=== PATIENT | male | born 2000 | race Caucasian/White ===

== ENCOUNTER 2024-12-03 15:32 | Observation (INO) ==
--- NOTE | 2024-12-03 15:49 | Emergency Department Note ---
HPI - Abdominal Pain General Chief Complaint: Abdominal Pain Stated Complaint: N/V/D, STOMACH DAVID Source: patient Mode of arrival: walk-in Limitations: no limitations History of Present Illness HPI narrative: This is a 24 year old male patient that presents to the ER with c/o diffuse abdominal pain with N/V/D today. patient states the pain is radiating into his chest. Patient denies any SOB, back pain, fever or chills. Patient states he smokes marijuana occassionally MD elicited complaint: abdominal pain Pertinent past history: none Onset (ago): hour(s) (4) Pain Consistency: constant Location: diffuse Severity: moderate Quality: cramping Radiation: chest Migration to: no migration Exacerbating factors: nothing Relieving factors: nothing Associated symptoms: nausea, vomiting and diarrhea Related Data Home Medications Medication Instructions Recorded Confirmed No Known Home Medication 12/03/24 12/03/24 Allergies Allergy/AdvReac Type Severity Reaction Status Date / Time No Known Drug Allergies Allergy Verified 12/03/24 16:13 Review of Systems Status of ROS 10 or more systems reviewed and unremark able except as noted in history and below Constitutional Denies: fever, chills, change in weight, fatigue, malaise or night sweats Eyes Denies: change in vision, blurry vision, blind spots or light sensitivity Ears, nose, mouth, and throat Denies: throat pain, neck pain, throat swelling, difficulty swallowing, hoarseness or mouth pain Cardiovascular Reports: chest pain; Denies: palpitations, edema, swelling of feet/ankles, lightheadedness or shortness of breath with exertion Respiratory Denies: shortness of breath, cough, wheezing, stridor, pain on inspiration, change in phlegm color or coughing up blood Gastrointestinal Reports: abdominal pain, nausea, vomiting and diarrhea; Denies: coffee grounds in vomit or heartburn Genitourinary Denies: painful urination, urinary frequency, urinary urgency, blood in urine, genital pain or genital lesion Musculoskeletal Denies: back pain, neck pain, extremity pain, extremity swelling, joint pain, limited range of motion or joint swelling Integumentary/Breast Denies: rash, itching, redness, skin pain, skin tenderness, skin swelling or sores Neurological Denies: headache, numbness in extremities, weakness in extremities, lack of coordination, dizziness or vertigo Psychiatric Denies: anxiety, mood swings, panic attacks, change in sleep pattern, hopelessness or loss of interest Endocrine Denies: excessive urination, excessive thirst, fatigue, cold intolerance or excessive sweating Hematologic/Lymphatic Denies: easy bruising, easy bleeding or enlarged lymph nodes Allergic/Immunologic Denies: hives, throat swelling, tongue swelling, facial swelling or wheezing PFSH COUNT INCLUDES [facility] Medical History (Updated 12/03/24 @ 16:14 by Dawna Rodriguez RN) Patient denies medical problems Surgical History (Updated 12/03/24 @ 16:14 by Dawna Rodriguez RN) No history of previous surgery Social History Smoking status: never smoker Within the past year, how often did you have a drink containing alcohol: never Within the past year, how often did you have six or more drinks on one occasion: never Score interpretation: A score less than 4 is consistent with normal alcohol consumption. Non-prescribed substance use: cannabis (any form) Exam Constitutional: normal general appearance and no apparent distress Vital Signs - 24 hr 12/03/24 15:52 Temperature 97.5 F L Pulse Rate 92 H Respiratory Rate 18 Blood Pressure 106/67 Pulse Oximetry 100 HENMT: normocephalic, head/scalp atraumatic, hearing grossly normal bilaterally, external ears normal, nasal mucous membranes normal, external nose normal, oral mucous membranes normal and oropharynx normal Eyes: PERRL, EOMs intact bilaterally, conjunctivae normal and no scleral icterus Neck/C-Spine: visual inspection normal and trachea midline Lymph: no lymphadenopathy noted Chest: inspection of chest normal Respiratory: breath sounds equal bilaterally, normal respiratory effort, clear to auscultation bilaterally, no wheezes, no rales, no retractions and no use of accessory muscles Cardiovascular: normal heart rate noted, regular rhythm noted, no gallop, no rub, no murmur, no JVD, no clicks, peripheral pulses 2+ throughout and no additional abnormal heart sounds Gastrointestinal: abdomen normal to inspection, abdomen soft to palpation, nontender to palpation, nontender to percussion, nondistended, normoactive bowel sounds, no hepatosplenomegaly, no masses, no pulsatile mass, no ascites and no hernia Genitourinary: no CVA tenderness Back/Pelvis: spine normal to inspection Extremities: normal to inspection, normal to palpation, no tenderness, full ROM, no joint enlargement and no deformity Neurology: no movement abnormality noted, no focal motor deficit noted, no sensory deficits noted, speech normal, coordination normal, no fasciculations noted and GCS normal Psychiatry: mental status grossly normal, oriented x3, thought process normal, cooperative and affect normal Skin: skin color normal Course Course Hospital Course: 1710: VSS, no s/s of acute distress noted, will admit patient to the medical floor for further evaluation and treatment Vital Signs Vital signs: Vital Signs Temperature 97.5 F L 12/03/24 15:52 Pulse Rate 92 H 12/03/24 15:52 Respiratory Rate 18 12/03/24 15:52 Blood Pressure 106/67 12/03/24 15:52 Pulse Oximetry 100 12/03/24 15:52 Temperature 97.5 F L 12/03/24 15:52 Pulse Rate 92 H 12/03/24 15:52 Respiratory Rate 18 12/03/24 15:52 Blood Pressure 106/67 12/03/24 15:52 Pulse Oximetry 100 12/03/24 15:52 MDM - Abdominal Pain Differential Diagnosis Differential diagnosis: Likely abdominal pain Medical Records Attestation: I reviewed the patient's medical records. Lab Data Attestation: I reviewed the patient's lab results. Labs: Lab Results 12/03/24 12/03/24 Range/Units 16:00 16:19 WBC 23.1 H* (3.7-9.6) K/uL RBC 5.7 (4.40-5.80) M/uL Hgb 18.2 H (14.0-17.4) gm/dL Hct 53.5 H (41.3-50.1) % MCV 93.3 (81.9-96.5) fl MCH 31.8 (27.6-33.7) pg MCHC 34.1 (33.0-35.7) g/dl RDW 13.3 (11.0-14.8) % Plt Count 277 (142-355) K/uL MPV 8.9 (6.0-10.4) fl Gran % 84.5 H (49.1-73.1) % Lymph % (Auto) 6.8 L (17.6-39.05) % [place] % (Auto) 8.0 (4.5-10.7) % Eos % (Auto) 0.5 (0.0-4.0) % Baso % (Auto) 0.2 (0.0-1.3) Lymph # (Auto) 1.6 (0.8-2.9) [place] # (Auto) 1.8 H (0.2-0.8) Eos # (Auto) 0.1 (0.0-0.3) Baso # (Auto) 0.0 (0.0-0.1) Absolute Gran (auto) 19.5 H (2.0-6.2) Sodium 138 (136-145) mmol/L Potassium 3.5 L (3.6-5.2) mmol/L Chloride 99.0 (98-107) mmol/L Carbon Dioxide 28 (21-32) mmol/L Anion Gap 11.0 (4-14) mEq/L BUN 18 (7-18) mg/dL Creatinine 1.1 (0.6-1.3) mg/dL Estimated GFR 95.5 (>59.9) Glucose 92 (70-110) mg/dL Lactic Acid 1.4 (0.27-1.43) mmol/L Calcium 9.8 (8.5-10.1) mg/dL Total Bilirubin 1.10 H (0.0-1.0) mg/dL AST 20 (15-37) U/L ALT 27 L (30-65) U/L Alkaline Phosphatase 102 (50-136) U/L Troponin I High Sens <4.00 L (4.0-60.4) ng/L Total Protein 8.1 (6.4-8.2) g/dL Albumin 4.6 (3.4-5.0) g/dL Lipase 22.0 (16.0-77.0) U/L Influenza Type A Ag Negative (Negative) Influenza Type B Ag Negative (Negative) Imaging Data Imaging ordered: CT scan - abdomen Attestation: I have reviewed the pertinent imaging results. Discharge Plan Discharge Patient Disposition: Admitted As Observation Condition: Stable Chief Complaint: Abdominal Pain Clinical Impression: Colitis, Abdominal pain, Leukocytosis Prescriptions: No Action No Known Home Medication Print Language: Prydeinig Referrals: [facility] [Other] Time of Disposition: 17:12
[2024-12-03] MEDS: KETOROLAC 30 MG/ML INJ VIAL IVP ONE (15:56)
[2024-12-03] MEDS: 0.9 % SODIUM CHLORIDE 1000 ML 1,000 ML IV STA (15:56)
[2024-12-03] MEDS: ONDANSETRON HCL/PF 4 MG/2 ML VIAL INJ STA (15:56)
[2024-12-03 16:07] LABS: Basophils%(Percent) Auto 0.2 (0.0-1.3); Eosinophils#(Absolute)Auto 0.1 (0.0-0.3); Monocytes #(Absolute)- Auto 1.8 (0.2-0.8)
[2024-12-03 16:09] LABS: Eosinophils%(Percent) Auto 0.5 % (0.0-4.0); Granulocytes % - Auto 84.5 % (49.1-73.1); Granulocytes#(Absolute)- Auto 19.5 (2.0-6.2); Hematocrit 53.5 % (41.3-50.1); Mean Corpuscular Volume 93.3 fl (81.9-96.5); Platelet Count 277 K/uL (142-355)
[2024-12-03 16:14] LABS: Potassium 3.5 mmol/L (3.6-5.2)
[2024-12-03 16:18] LABS: White Blood Count 23.1 K/uL (3.7-9.6)
[2024-12-03] MEDS ORDERED: CIPROFLOXACIN 400 MG/200ML-D5W 400 MG/200 ML PIGGYBACK IV ONE (17:47)
[2024-12-03] MEDS: CIPROFLOXACIN 400 MG/200ML-D5W 400 MG/200 ML PIGGYBACK IV STA (17:48)
[2024-12-03] MEDS ORDERED: ACETAMINOPHEN 500 MG TABLET PO PRN (18:06)
[2024-12-03] MEDS ORDERED: DICYCLOMINE HCL 10 MG/ML AMPUL IM PRN (18:06)
[2024-12-03] MEDS: METRONIDAZOLE 500 MG/100ML-NS 500 MG/100 ML PIGGYBACK IV STA (18:10)
[2024-12-03] MEDS: 0.9 % SODIUM CHLORIDE 1000 ML 1,000 ML IV SCH (18:40)
[2024-12-03 18:48] LABS: Urine Appearance CLEAR (CLEAR); Urine Blood NEGATIVE (NEG - TRACE); Urine Color AMBER (STRAW/YELL.)
[2024-12-03 18:49] LABS: Urine Urobilinogen Normal (NORMAL)
[2024-12-03 18:54] LABS: Amphetamine Screen Urine POS. (NEGATIVE); Cannabinoid Screen Urine POS. (NEGATIVE); Cocaine Screen Urine NEG. (NEGATIVE); Methadone Screen Urine NEG. (NEGATIVE); Opiate Screen Urine NEG. (NEGATIVE)
[2024-12-03] MEDS: PROMETHAZINE HCL 25 MG TABLET PO ONE ×2 (20:33)
[2024-12-03] MEDS: ONDANSETRON HCL/PF 4 MG/2 ML VIAL INJ PRN (20:35)
[2024-12-03] MEDS: MORPHINE SULFATE 4 MG/ML CARTRIDGE IVP PRN (20:36)
[2024-12-04] MEDS: METRONIDAZOLE 500 MG/100ML-NS 500 MG/100 ML PIGGYBACK IV SCH (02:28)
[2024-12-04] MEDS: CIPROFLOXACIN 400 MG/200ML-D5W 400 MG/200 ML PIGGYBACK IV SCH (04:28)
[2024-12-04 04:53] LABS: Basophils%(Percent) Auto 0.4 (0.0-1.3); Eosinophils%(Percent) Auto 0.3 % (0.0-4.0); Granulocytes % - Auto 82.5 % (49.1-73.1); Granulocytes#(Absolute)- Auto 6.7 (2.0-6.2); Mean Corpuscular Volume 92.6 fl (81.9-96.5); Monocytes #(Absolute)- Auto 0.6 (0.2-0.8); Monocytes %(Percent)- Auto 7.9 % (4.5-10.7); Platelet Count 137 K/uL (142-355); White Blood Count 8.2 K/uL (3.7-9.6)
[2024-12-04 04:56] LABS: Potassium 3.6 mmol/L (3.6-5.2)
[2024-12-04 08:20] VITALS: RESP 18
[2024-12-04] MEDS ORDERED: DICYCLOMINE HCL 20 MG TABLET PO SCH (10:00)
[2024-12-04] MEDS: DICYCLOMINE HCL 20 MG TABLET PO PRN (10:14)
--- NOTE | 2024-12-04 10:53 | Internal Medicine Prog Note ---
Progress Note: A&P Fall Risk Details Hughes Fall Scale Risk Level: Low Fall Risk Current Medications: Current Medications Acetaminophen (Acetaminophen 500 Mg Tablet) 500 mg PO Q6H PRN PRN Reason: Pain Dicyclomine HCl (Dicyclomine Hcl 20 Mg Tablet) 20 mg PO Q8H PRN PRN Reason: ABDOMINAL PAIN Last Admin: 12/04/24 10:14 Dose: 20 mg Sodium Chloride (Sodium Chloride) 1,000 mls @ 100 mls/hr IV CONT DONNA Last Admin: 12/04/24 02:28 Dose: 100 mls/hr Ciprofloxacin/Dextrose (Ciprofloxacin 400 Mg/200ml-D5w) 400 mg in 200 mls @ 200 mls/hr IV Q12H DONNA Last Admin: 12/04/24 04:28 Dose: 200 mls/hr Metronidazole (Metronidazole 500 Mg/100ml-Ns) 500 mg in 100 mls @ 100 mls/hr IV Q8H DONNA Last Admin: 12/04/24 10:13 Dose: 100 mls/hr Morphine Sulfate (Morphine Sulfate 4 Mg/Ml Cartridge) 4 mg IVP Q4H PRN PRN Reason: Pain Last Admin: 12/04/24 02:29 Dose: 4 mg Ondansetron HCl (Ondansetron Hcl/Pf 4 Mg/2 Ml Vial) 4 mg INJ Q6H PRN PRN Reason: Nausea And Vomiting Last Admin: 12/04/24 08:15 Dose: 4 mg Time Spent With Patient Time: Total time spent is greater than 50% in coordination of care (as documented) at patient's floor/unit and/or counseling patient: Exam Constitutional: Vital Signs - 24 hr 12/03/24 15:52 12/03/24 16:30 12/03/24 17:00 Temperature 97.5 F L Pulse Rate 92 H 72 81 Pulse Rate [Left] Respiratory Rate 18 18 17 Blood Pressure 106/67 103/65 102/65 Blood Pressure [Le ft Arm] Pulse Oximetry 100 98 99 Oxygen Delivery Me thod 12/03/24 17:49 12/03/24 17:51 12/03/24 17:51 Temperature 98.1 F Pulse Rate 81 Pulse Rate [Left] 63 Respiratory Rate 17 Blood Pressure 115/70 115/70 Blood Pressure [Le ft Arm] Pulse Oximetry 97 99 [facility] 12/03/24 18:06 12/03/24 20:00 12/03/24 23:49 Temperature 98.3 F 97.5 F L 98.7 F Pulse Rate Pulse Rate [Left] 63 66 66 Respiratory Rate 16 17 16 Blood Pressure Blood Pressure [Le ft Arm] 110/66 106/64 101/56 Pulse Oximetry 97 98 98 Oxygen Delivery Me thod Room Air Room Air Room Air 12/04/24 03:57 12/04/24 08:00 Temperature 99.0 F 98.3 F Pulse Rate Pulse Rate [Left] 83 60 Respiratory Rate 19 18 Blood Pressure Blood Pressure [Le ft Arm] 101/50 103/61 Pulse Oximetry 97 99 Oxygen Delivery Me thod Room Air Room Air Internal Medicine - PN: Obj Da Labs Labs: Laboratory Results - last 24 hr 12/03/24 12/03/24 12/03/24 15:46 16:00 16:19 WBC 23.1 H* RBC 5.7 Hgb 18.2 H Hct 53.5 H MCV 93.3 MCH 31.8 MCHC 34.1 RDW 13.3 Plt Count 277 MPV 8.9 Gran % 84.5 H Lymph % (Auto) 6.8 L [place] % (Auto) 8.0 Eos % (Auto) 0.5 Baso % (Auto) 0.2 Lymph # (Auto) 1.6 [place] # (Auto) 1.8 H Eos # (Auto) 0.1 Baso # (Auto) 0.0 Absolute Gran (auto) 19.5 H Sodium 138 Potassium 3.5 L Chloride 99.0 Carbon Dioxide 28 Anion Gap 11.0 BUN 18 Creatinine 1.1 Estimated GFR 95.5 Glucose 92 Lactic Acid 1.4 Calcium 9.8 Total Bilirubin 1.10 H AST 20 ALT 27 L Alkaline Phosphatase 102 Troponin I High Sens <4.00 L Total Protein 8.1 Albumin 4.6 Lipase 22.0 Urine Color Aimee Urine Appearance Clear Ur Specific [place] 1.010 Urine Protein Negative Urine Glucose (UA) Normal Urine Ketones Large Urine Occult Blood Negative Urine Nitrite Negative Urine Bilirubin Negative Urine Urobilinogen Normal Ur Leukocyte Esterase Negative Fluid pH 6.0 Urine Opiates Screen Urine Methadone Screen Barbiturate Screen Ur Phencyclidine Scrn Amphetamines Screen U Benzodiazepines Scrn Urine Cocaine Screen U Marijuana (THC) Screen Influenza Type A Ag Negative Influenza Type B Ag Negative 12/03/24 12/04/24 18:36 03:55 WBC 8.2 D RBC 4.5 Hgb 14.8 Hct 42.0 MCV 92.6 MCH 32.7 MCHC 35.2 RDW 12.8 Plt Count 137 L MPV 9.4 Gran % 82.5 H Lymph % (Auto) 8.9 L [place] % (Auto) 7.9 Eos % (Auto) 0.3 Baso % (Auto) 0.4 Lymph # (Auto) 0.7 L [place] # (Auto) 0.6 Eos # (Auto) 0.0 Baso # (Auto) 0.0 Absolute Gran (auto) 6.7 H Sodium 135 L Potassium 3.6 Chloride 102.0 Carbon Dioxide 27 Anion Gap 6.0 BUN 17 Creatinine 1.0 Estimated GFR 107.1 Glucose 86 Lactic Acid Calcium 8.2 L Total Bilirubin 0.65 AST 17 ALT 20 L Alkaline Phosphatase 69 Troponin I High Sens Total Protein 5.8 L Albumin 3.1 L Lipase Urine Color Urine Appearance Ur Specific [place] Urine Protein Urine Glucose (UA) Urine Ketones Urine Occult Blood Urine Nitrite Urine Bilirubin Urine Urobilinogen Ur Leukocyte Esterase Fluid pH Urine Opiates Screen Neg. Urine Methadone Screen Neg. Barbiturate Screen Neg. Ur Phencyclidine Scrn Neg. Amphetamines Screen Pos. U Benzodiazepines Scrn Neg. Urine Cocaine Screen Neg. U Marijuana (THC) Screen Pos. Influenza Type A Ag Influenza Type B Ag Review of Systems Status of ROS: 10 or more systems reviewed and unremarkable except as noted in history and below Constitutional: Denies: fever, chills, change in weight, fatigue, malaise or night sweats Eyes: Denies: change in vision, blurry vision, blind spots or light sensitivity Ears, nose, mouth, and throat: Denies: throat pain, neck pain, throat swelling, difficulty swallowing, hoarseness, mouth pain or vertigo Cardiovascular: Reports: chest pain; Denies: palpitations, edema, swelling of feet/ankles, lightheadedness or shortness of breath with exertion Respiratory: Denies: shortness of breath, cough, wheezing, stridor, pain on inspiration, change in phlegm color or coughing up blood Gastrointestinal: Reports: abdominal pain, nausea, vomiting and diarrhea; Denies: coffee grounds in vomit, heartburn or difficulty swallowing Genitourinary: Denies: painful urination, urinary frequency, urinary urgency, blood in urine, genital pain or genital lesion Musculoskeletal: Denies: back pain, neck pain, extremity pain, extremity swelling, joint pain, limited range of motion or joint swelling Integumentary/Breast: Denies: rash, itching, redness, skin pain, skin tenderness, skin swelling or sores Neurological: Denies: headache, numbness in extremities, weakness in extremities , lack of coordination, dizziness or vertigo Psychiatric: Denies: anxiety, mood swings, panic attacks, change in sleep pattern, hopelessness or loss of interest Endocrine: Denies: excessive urination, excessive thirst, fatigue, cold intolerance or excessive sweating Hematologic/Lymphatic: Denies: easy bruising, easy bleeding or enlarged lymph nodes Allergic/Immunologic: Denies: hives, throat swelling, tongue swelling, facial swelling or wheezing
--- NOTE | 2024-12-04 12:35 | Internal Medicine H&P ---
Internal Medicine - H&P: HPI History of Present Illness Chief complaint: COLITIS, LEUKOCYTOSIS Narrative: To ER from home with worsening nausea, vomiting, and abdominal pain. Whole household with a "bug" but mostly URI symptoms for others. ER work-up with leukocytosis and HR >90. UDS with THC and amphetamines, but pt only admits to THC use. Admitted for sepsis due to enteritis after CT showed small bowel inflammation. Rested better overnight. Abdomen less tender and nausea controlled with Zofran. Able to keep foods down, but has near immediate diarrhea. Review of Systems Status of ROS 10 or more systems reviewed and unremark able except as noted in history and below Constitutional Denies: fever, chills, change in weight, fatigue, malaise or night sweats Eyes Denies: change in vision, blurry vision, blind spots or light sensitivity Ears, nose, mouth, and throat Denies: throat pain, neck pain, throat swelling, difficulty swallowing, hoarseness, mouth pain or vertigo Cardiovascular Reports: chest pain; Denies: palpitations, edema, swelling of feet/ankles, lightheadedness or shortness of breath with exertion Respiratory Denies: shortness of breath, cough, wheezing, stridor, pain on inspiration, change in phlegm color or coughing up blood Gastrointestinal Reports: abdominal pain, nausea, vomiting and diarrhea; Denies: coffee grounds in vomit, heartburn or difficulty swallowing Genitourinary Denies: painful urination, urinary frequency, urinary urgency, blood in urine, genital pain or genital lesion Musculoskeletal Denies: back pain, neck pain, extremity pain, extremity swelling, joint pain, limited range of motion or joint swelling Integumentary/Breast Denies: rash, itching, redness, skin pain, skin tenderness, skin swelling or sores Neurological Denies: headache, numbness in extremities, weakness in extremities, lack of coordination, dizziness or vertigo Psychiatric Denies: anxiety, mood swings, panic attacks, change in sleep pattern, hopelessness or loss of interest Endocrine Denies: excessive urination, excessive thirst, fatigue, cold intolerance or excessive sweating Hematologic/Lymphatic Denies: easy bruising, easy bleeding or enlarged lymph nodes Allergic/Immunologic Denies: hives, throat swelling, tongue swelling, facial swelling or wheezing [facility] Medical History (Updated 12/04/24 @ 12:34 by Bird Avalos MD) Patient denies medical problems Surgical History (Updated 12/03/24 @ 16:14 by Dawna Rodriguez RN) No history of previous surgery Social History Smoking status: never smoker Within the past year, how often did you have a drink containing alcohol: never Within the past year, how often did you have six or more drinks on one occasion: never Score interpretation: A score less than 4 is consistent with normal alcohol consumption. Non-prescribed substance use: cannabis (any form) Problems where you live: no known problems Highest level of school completed/degree received: high school Meds Home Medications and Allergies Home Medications Medication Instructions Recorded Confirmed Type No Known Home Medication 12/03/24 12/03/24 History Allergies Allergy/AdvReac Type Severity Reaction Status Date / Time No Known Drug Allergies Allergy Verified 12/03/24 16:13 Exam Constitutional: normal general appearance, no apparent distress, average body habitus, no limitations and alert Vital Signs - 24 hr 12/03/24 15:52 12/03/24 16:30 12/03/24 17:00 Temperature 97.5 F L Pulse Rate 92 H 72 81 Pulse Rate [Left] Respiratory Rate 18 18 17 Blood Pressure 106/67 103/65 102/65 Blood Pressure [Le ft Arm] Pulse Oximetry 100 98 99 Oxygen Delivery Me thod 12/03/24 17:49 12/03/24 17:51 12/03/24 17:51 Temperature 98.1 F Pulse Rate 81 Pulse Rate [Left] 63 Respiratory Rate 17 Blood Pressure 115/70 115/70 Blood Pressure [Le ft Arm] Pulse Oximetry 97 99 Oxygen Delivery Me thod Room Air 12/03/24 18:06 12/03/24 20:00 12/03/24 23:49 Temperature 98.3 F 97.5 F L 98.7 F Pulse Rate Pulse Rate [Left] 63 66 66 Respiratory Rate 16 17 16 Blood Pressure Blood Pressure [Le ft Arm] 110/66 106/64 101/56 Pulse Oximetry 97 98 98 Oxygen Delivery Me thod Room Air Room Air Room Air 12/04/24 03:57 12/04/24 08:00 Temperature 99.0 F 98.3 F Pulse Rate Pulse Rate [Left] 83 60 Respiratory Rate 19 18 Blood Pressure Blood Pressure [Le ft Arm] 101/50 103/61 Pulse Oximetry 97 99 Oxygen Delivery Me thod Room Air Room Air HENMT: normocephalic, head/scalp atraumatic, hearing grossly normal bilaterally, external ears normal and nasal mucous membranes normal Eyes: PERRL, EOMs intact bilaterally and conjunctivae normal Neck/C-Spine: visual inspection normal and trachea midline Respiratory: breath sounds equal bilaterally, normal respiratory effort, clear to auscultation bilaterally and no wheezes Cardiovascular: normal heart rate noted, regular rhythm noted and no murmur Gastrointestinal: abdomen normal to inspection, abdomen soft to palpation, tender to palpation (moderate), (RLQ) and (RUQ), nondistended and normoactive bowel sounds Genitourinary: no CVA tenderness Back/Pelvis: thoracic spine ROM normal and lumbar spine ROM normal Extremities: normal to inspection, normal to palpation and full ROM Neurology: offal trimmer II-XII intact, no focal motor deficit noted, speech normal and no fasciculations noted Psychiatry: mental status grossly normal, oriented x3, thought process normal, cooperative, affect normal, psychomotor activity normal and memory normal Internal Medicine - H&P: Reslt Labs Labs: CBC WBC 8.2 K/uL (3.7-9.6) D 12/04/24 03:55 RBC 4.5 M/uL (4.40-5.80) 12/04/24 03:55 Hgb 14.8 gm/dL (14.0-17.4) 12/04/24 03:55 Hct 42.0 % (41.3-50.1) 12/04/24 03:55 MCV 92.6 fl (81.9-96.5) 12/04/24 03:55 MCH 32.7 pg (27.6-33.7) 12/04/24 03:55 MCHC 35.2 g/dl (33.0-35.7) 12/04/24 03:55 RDW 12.8 % (11.0-14.8) 12/04/24 03:55 Plt Count 137 K/uL (142-355) L 12/04/24 03:55 MPV 9.4 fl (6.0-10.4) 12/04/24 03:55 Gran % 82.5 % (49.1-73.1) H 12/04/24 03:55 Lymph % (Auto) 8.9 % (17.6-39.05) L 12/04/24 03:55 [place] % (Auto) 7.9 % (4.5-10.7) 12/04/24 03:55 Eos % (Auto) 0.3 % (0.0-4.0) 12/04/24 03:55 Baso % (Auto) 0.4 (0.0-1.3) 12/04/24 03:55 Lymph # (Auto) 0.7 (0.8-2.9) L 12/04/24 03:55 [place] # (Auto) 0.6 (0.2-0.8) 12/04/24 03:55 Eos # (Auto) 0.0 (0.0-0.3) 12/04/24 03:55 Baso # (Auto) 0.0 (0.0-0.1) 12/04/24 03:55 Absolute Gran (auto) 6.7 (2.0-6.2) H 12/04/24 03:55 BMP Sodium 135 mmol/L (136-145) L 12/04/24 03:55 Potassium 3.6 mmol/L (3.6-5.2) 12/04/24 03:55 Chloride 102.0 mmol/L (98-107) 12/04/24 03:55 Carbon Dioxide 27 mmol/L (21-32) 12/04/24 03:55 Anion Gap 6.0 mEq/L (4-14) 12/04/24 03:55 BUN 17 mg/dL (7-18) 12/04/24 03:55 Creatinine 1.0 mg/dL (0.6-1.3) 12/04/24 03:55 Estimated GFR 107.1 (>59.9) 12/04/24 03:55 Glucose 86 mg/dL (70-110) 12/04/24 03:55 Calcium 8.2 mg/dL (8.5-10.1) L 12/04/24 03:55 Total Bilirubin 0.65 mg/dL (0.0-1.0) 12/04/24 03:55 AST 17 U/L (15-37) 12/04/24 03:55 ALT 20 U/L (30-65) L 12/04/24 03:55 Alkaline Phosphatase 69 U/L (50-136) 12/04/24 03:55 Total Protein 5.8 g/dL (6.4-8.2) L 12/04/24 03:55 Albumin 3.1 g/dL (3.4-5.0) L 12/04/24 03:55 Cardiac Enzymes Troponin I High Sens <4.00 ng/L (4.0-60.4) L 12/03/24 16:00 Liver Function Total Bilirubin 0.65 mg/dL (0.0-1.0) 12/04/24 03:55 AST 17 U/L (15-37) 12/04/24 03:55 ALT 20 U/L (30-65) L 12/04/24 03:55 Alkaline Phosphatase 69 U/L (50-136) 12/04/24 03:55 Total Protein 5.8 g/dL (6.4-8.2) L 12/04/24 03:55 Albumin 3.1 g/dL (3.4-5.0) L 12/04/24 03:55 Urine Urine Color Aimee (STRAW/YELL.) 12/03/24 15:46 Urine Appearance Clear (CLEAR) 12/03/24 15:46 Ur Specific [place] 1.010 (1.001-1.035) 12/03/24 15:46 Urine Protein Negative (NEGATIVE) 12/03/24 15:46 Urine Glucose (UA) Normal (NORMAL) 12/03/24 15:46 Urine Ketones Large (NEGATIVE) 12/03/24 15:46 Urine Occult Blood Negative (NEG - TRACE) 12/03/24 15:46 Urine Nitrite Negative (NEGATIVE) 12/03/24 15:46 Urine Bilirubin Negative (NEGATIVE) 12/03/24 15:46 Urine Urobilinogen Normal (NORMAL) 12/03/24 15:46 Ur Leukocyte Esterase Negative (NEGATIVE) 12/03/24 15:46 Assessment and Plan Assessment and Plan (1) Sepsis: Qualifiers: Sepsis type: sepsis due to unspecified organism Sepsis acute organ dysfunction status: without acute organ dysfunction Qualified Code(s): A41.9 - Sepsis, unspecified organism Code(s): A41.9 - Sepsis, unspecified organism (2) Enteritis: Code(s): K52.9 - Noninfective gastroenteritis and colitis, unspecified (3) Tetrahydrocannabinol (THC) dependence: Code(s): F12.20 - Cannabis dependence, uncomplicated Plan Continue IVFs. Bentyl and Zofran prn. Continue Flagyl/Cipro. Likely home in 24- 48hrs.
[2024-12-04 13:03] VITALS: BP 100/57; PULSE 62; TEMP 98.6
--- NOTE | 2024-12-04 14:24 | Discharge Summary ---
DS: Providers Provider Date of admission: 12/03/24 17:23 Primary care physician: Kaelyn Alvarez NP Admitting clinician: Yanna Irizarry Attending physician on admission: Rachael Slaughter Attending physician on discharge: Bird Avalos Discharging clinician: Bird Avalos Anticipated date of discharge: 12/04/24 DS: Diagnosis Discharge Diagnosis (1) Sepsis: Assessment and plan: resolved Qualifiers: Sepsis type: sepsis due to unspecified organism Sepsis acute organ dysfunction status: without acute organ dysfunction Qualified Code(s): A41.9 - Sepsis, unspecified organism (2) Enteritis: Assessment and plan: improving. (3) Tetrahydrocannabinol (THC) dependence: Assessment and plan: stable, advised on cessation Plan Discharge home with below meds. DS: Summary Hospital Course Hospital Course: Improved to the point he was tolerating liquids and semi-solids. Diarrhea after eating was improving. Asking to go home. Zofran and Bentyl providing some relief. Status at Discharge Functional status at discharge: independent ambulation Overall status at discharge: patient is progressing back to baseline Time Spent with Patient Time attestation: Total time spent providing and/or coordinating discharge services: Time spent: greater than 30 minutes Exam Exam: See H&P from same date. Constitutional: Vital Signs - 24 hr 12/03/24 15:52 12/03/24 16:30 12/03/24 17:00 Temperature 97.5 F L Pulse Rate 92 H 72 81 Pulse Rate [Left] Respiratory Rate 18 18 17 Blood Pressure 106/67 103/65 102/65 Blood Pressure [Le ft Arm] Pulse Oximetry 100 98 99 Oxygen Delivery Me thod 12/03/24 17:49 12/03/24 17:51 12/03/24 17:51 Temperature 98.1 F Pulse Rate 81 Pulse Rate [Left] 63 Respiratory Rate 17 Blood Pressure 115/70 115/70 Blood Pressure [Le ft Arm] Pulse Oximetry 97 99 Oxygen Delivery Me thod Room Air 12/03/24 18:06 12/03/24 20:00 12/03/24 23:49 Temperature 98.3 F 97.5 F L 98.7 F Pulse Rate Pulse Rate [Left] 63 66 66 Respiratory Rate 16 17 16 Blood Pressure Blood Pressure [Le ft Arm] 110/66 106/64 101/56 Pulse Oximetry 97 98 98 Oxygen Delivery Me thod Room Air Room Air Room Air 12/04/24 03:57 12/04/24 08:00 12/04/24 12:00 Temperature 99.0 F 98.3 F 98.6 F Pulse Rate Pulse Rate [Left] 83 60 62 Respiratory Rate 19 18 18 Blood Pressure Blood Pressure [Le ft Arm] 101/50 103/61 100/57 Pulse Oximetry 97 99 99 Oxygen Delivery Me thod Room Air Room Air Room Air DS: Data Data Completed and Pending Labs on day of discharge: Labs from last 24 hours 12/04/24 12/03/24 12/03/24 03:55 18:36 16:19 WBC 8.2 D RBC 4.5 Hgb 14.8 Hct 42.0 MCV 92.6 MCH 32.7 MCHC 35.2 RDW 12.8 Plt Count 137 L MPV 9.4 Gran % 82.5 H Lymph % (Auto) 8.9 L [place] % (Auto) 7.9 Eos % (Auto) 0.3 Baso % (Auto) 0.4 Lymph # (Auto) 0.7 L [place] # (Auto) 0.6 Eos # (Auto) 0.0 Baso # (Auto) 0.0 Absolute Gran (auto) 6.7 H Sodium 135 L Potassium 3.6 Chloride 102.0 Carbon Dioxide 27 Anion Gap 6.0 BUN 17 Creatinine 1.0 Estimated GFR 107.1 Glucose 86 Lactic Acid 1.4 Calcium 8.2 L Total Bilirubin 0.65 AST 17 ALT 20 L Alkaline Phosphatase 69 Troponin I High Sens Total Protein 5.8 L Albumin 3.1 L Lipase Urine Color Urine Appearance Ur Specific [place] Urine Protein Urine Glucose (UA) Urine Ketones Urine Occult Blood Urine Nitrite Urine Bilirubin Urine Urobilinogen Ur Leukocyte Esterase Fluid pH Urine Opiates Screen Neg. Urine Methadone Screen Neg. Barbiturate Screen Neg. Ur Phencyclidine Scrn Neg. Amphetamines Screen Pos. U Benzodiazepines Scrn Neg. Urine Cocaine Screen Neg. U Marijuana (THC) Screen Pos. Influenza Type A Ag Influenza Type B Ag 12/03/24 12/03/24 16:00 15:46 WBC 23.1 H* RBC 5.7 Hgb 18.2 H Hct 53.5 H MCV 93.3 MCH 31.8 MCHC 34.1 RDW 13.3 Plt Count 277 MPV 8.9 Gran % 84.5 H Lymph % (Auto) 6.8 L [place] % (Auto) 8.0 Eos % (Auto) 0.5 Baso % (Auto) 0.2 Lymph # (Auto) 1.6 [place] # (Auto) 1.8 H Eos # (Auto) 0.1 Baso # (Auto) 0.0 Absolute Gran (auto) 19.5 H Sodium 138 Potassium 3.5 L Chloride 99.0 Carbon Dioxide 28 Anion Gap 11.0 BUN 18 Creatinine 1.1 Estimated GFR 95.5 Glucose 92 Lactic Acid Calcium 9.8 Total Bilirubin 1.10 H AST 20 ALT 27 L Alkaline Phosphatase 102 Troponin I High Sens <4.00 L Total Protein 8.1 Albumin 4.6 Lipase 22.0 Urine Color [place] Urine Appearance Clear Ur Specific [place] 1.010 Urine Protein Negative Urine Glucose (UA) Normal Urine Ketones Large Urine Occult Blood Negative Urine Nitrite Negative Urine Bilirubin Negative Urine Urobilinogen Normal Ur Leukocyte Esterase Negative Fluid pH 6.0 Urine Opiates Screen Urine Methadone Screen Barbiturate Screen Ur Phencyclidine Scrn Amphetamines Screen U Benzodiazepines Scrn Urine Cocaine Screen U Marijuana (THC) Screen Influenza Type A Ag Negative Influenza Type B Ag Negative Discharge Plan Discharge Disposition: Home, Self-Care Condition: Stable Discharge Medications: New ondansetron 4 mg tablet,disintegrating 4 mg PO Q8H PRN (Reason: nausea and vomiting) Qty: 20 0RF dicyclomine 20 mg tablet 20 mg PO TID Qty: 20 0RF Discharge Orders: Discharge Order (Routine); Ordered 12/04/24 Ordered By: Bird Avalos Activity: increase activity as tolerated Diet: advance to your usual diet Interventions: MED/SURG & ICU Observation Charge Sheet Last Done: 12/04/24 05:35 Forms: Portal/Health Info Access Inst Follow-Ups: ANDTERI [Other]
== END 2024-12-04 15:10 | disposition home or self-care (01) ==
LOC: ED 15:32 → MS 15:32
PROVIDERS: ADMIT Family Medicine; ATTEND Family Medicine